=== PATIENT | female | born 1990 | race Caucasian/White ===

== ENCOUNTER 2016-10-22 20:20 | Emergency (ER) | payer MEDICAID ==
[~2016-10-22] VITALS: Ht 152.4 cm; Wt 67.0 kg
[~2016-10-22 20:20] MED LIST: PREN1TAB49
[2016-10-22 21:29] VITALS: Ht 152.4 cm; Wt 67.0 kg
[2016-10-22] MEDS ORDERED: IBUP-1542 PO (22:14)
[2016-10-22] MEDS ORDERED: ACYC800T57 PO (22:14)
[2016-10-22] MEDS ORDERED: HYDR-3011 PO (22:14)
--- NOTE | 2016-10-22 22:20 | ERD ---
ER Documentation Chief Complaint Date/Time DATE: 10/22/16 TIME: 22:16 Chief Complaint Chicken pox HPI 26-year-old female presents here in emergency department for complaints of rash all over the body and on and off fever runny nose nasal congestion the last 2 days. Patient had a coworker who was recently diagnosed with chickenpox, was in contact with her, started to have the rash yesterday. Patient does not have any cough shortness breath or wheezing. Patient denies any headache or dizziness. Patient denies any blurry vision. Patient denies any neck pain. Patient denies any numbness or tingling. Patient denies any changes in balance or memory. Patient denies any chest pain or palpitations. ROS All systems reviewed and are negative except as per history of present illness. Medications Home Meds Active Scripts Hydroxyzine Hcl* (Hydroxyzine Hcl*) 25 Mg Tablet, 25 MG PO Q8H Y for ITCHING, # 30 TAB Prov:KIRAN LIZ CT TECHNICIAN 10/22/16 Ibuprofen* (Motrin*) 600 Mg Tab, 600 MG PO Q6H Y for PAIN AND OR ELEVATED TEMP, #30 TAB Prov:KIRAN LIZ CT TECHNICIAN 10/22/16 Acyclovir* (Zovirax*) 800 Mg Tablet, 800 MG PO 5 TIMES DAILY for 7 Days, TAB Prov:KIRAN LIZ CT TECHNICIAN 10/22/16 Reported Medications Vits W-Ca,Fe,Fa(<1MG) () 1 Tab Tablet 05/24/10 Allergies Allergies: Coded Allergies: No Known Drug Allergy (Verified Allergy, Mild, 05/24/10) PMhx/Soc Medical and Surgical Hx: pt denies Medical Hx, pt denies Surgical Hx History of Surgery: No Anesthesia Reaction: No Hx Neurological Disorder: No Hx Respiratory Disorders: No Hx Cardiac Disorders: No Hx Psychiatric Problems: No Hx Miscellaneous Medical Probl: No Hx Alcohol Use: No Hx Substance Use: No Hx Tobacco Use: No FmHx Family History: No coronary disease, No diabetes, No other Physical Exam Vitals Vital Signs Date Time Temp Pulse Resp B/P Pulse Ox O2 Delivery O2 Flow Rate FiO2 10/22/16 21:29 98.8 82 18 127/76 100 Physical Exam GENERAL: The patient is well developed and appropriate for usual state of health, in no apparent distress. CHEST: Clear to auscultation bilaterally. There are no rales, wheezes or rhonchi. HEART: Regular rate and rhythm. No murmurs, clicks, rubs or gallops. No S3 or S4. ABDOMEN: Soft, nontender and nondistended. Good bowel sounds. No rebound or guarding. No gross peritonitis. No gross organomegaly or masses. No Boone sign or McBurney point tenderness. BACK: No midline or flank tenderness. EXTREMITIES: Equal pulses bilaterally. There is no peripheral clubbing, cyanosis or edema. No focal swelling or erythema. Full range of motion. Grossly neurovascularly intact. NEURO: Alert and oriented. Cranial nerves 2-12 intact. Motor strength in all 4 extremities with 5/5 strength. Sensation grossly intact. Normal speech and gait. SKIN: Vesicular rash noted all over the body. There is no apparent ecchymosis or petechia. The skin is warm and dry. HEMATOLOGIC AND LYMPHATIC: There is no evidence of excessive bruising or lymphedema. No gross cervical, axillary, or inguinal lymphadenopathy. Procedures/MDM I discussed this case with my attending physician, Dr. Corona since patient does not have any cough, shortness of breath, does not have any abnormal lung sounds, and symptoms of respiratory distress, very low suspicion for chickenpox pneumonia, low suspicion for chickenpox encephalitis, patient does not have any headache, does not have any dizziness, neurologic exam is normal. No symptoms of any meningitis. As per Dr. Corona instructions, outpatient management with antiviral is appropriate at this time. Patient agrees with plan, she'll return to ER precautions for symptoms of encephalitis or pneumonia, verbalized understanding. Medical decision making: Patient symptoms is most likely consistent with Varicella, chickenpox. Patient had an exposure to another person over chickenpox. No symptoms of any encephalitis, pneumonia, no symptoms of respiratory distress, neurologic exam is normal. Prescriptions given for acyclovir, ibuprofen, hydroxyzine, is advised to follow-up with primary care doctor in 2-3 days for reevaluation of symptoms, patient was advised that she will be contagious, patient was given instructions. Patient was advised to return to emergency department for any worsening symptoms. Departure Diagnosis: Primary Impression: Chicken pox Varicella complications: without complication Qualified Code: B01.9 - Varicella without complication Condition: Stable Patient Instructions: Chickenpox CUISIA,KIRAN RUFF T. CT TECHNICIAN Oct 22, 2016 22:20
[2016-10-22 23:40] VITALS: BP 123/75; PULSE 84; RESP 17; TEMP 98.6
== END 2016-10-22 23:40 | disposition home or self-care (01) ==
LOC: FTE 20:20
DX: B01.9 Varicella without complication (principal)
CPT/HCPCS: Z7502; Z7610; 99284